=== PATIENT | female | born 1995 | race African-American/Black ===

== ENCOUNTER 2017-12-26 22:58 | Emergency (ER) | payer BC ==
[2017-12-27 01:03] LABS: ADD MAN DIFF? NO
[2017-12-27] MEDS: SOD CHLORIDE 0.9% 1,000 ML IV (01:03)
[2017-12-27] MEDS: METOCLOPRAMIDE 10 MG INJ IV (01:04)
[2017-12-27 01:05] LABS: ABNORMAL IP MESSAGE 1; BASOPHILS % 0.4 % (0.0-2.0); EOSINOPHILS # 0.1 10^3/ul (0.0-0.5); HEMATOCRIT 36.1 % (37.0-47.0); HEMOGLOBIN 11.1 g/dl (12.0-16.0); LYMPHOCYTES # 2.8 10^3/ul (0.8-2.9); MEAN CORPUSCULAR HEMOGLOBIN 24.3 pg (29.0-33.0); MEAN CORPUSCULAR HGB CONC 30.7 g/dl (32.0-37.0); MEAN CORPUSCULAR VOLUME 79.2 fl (82.0-101.0); MONOCYTE # 0.5 10^3/ul (0.3-0.9); MONOCYTES % 7.5 % (0.0-11.0); NEUTROPHIL # 3.3 10^3/ul (1.6-7.5); PLATELET COUNT 198 10^3/UL (140-415); RED BLOOD COUNT 4.56 10^6/ul (4.20-5.40); RED CELL DISTRIBUTION WIDTH 14.6 % (11.5-14.5)
[2017-12-27 01:05] LABS: WHITE BLOOD COUNT 6.8 10^3/ul (4.8-10.8)
[2017-12-27] MEDS: DIPHENHYDRAMINE 50 MG INJ IV (01:05)
[2017-12-27] MEDS: KETOROLAC 30 MG INJ IV (01:05)
[2017-12-27 01:07] LABS: POSITIVE DIFF @See below
[2017-12-27 01:22] LABS: ANION GAP 13 (8-16); BLOOD UREA NITROGEN 11 mg/dl (7-20); CALCIUM 9.3 mg/dl (8.4-10.2); CARBON DIOXIDE 23 mmol/L (21-31); CHLORIDE 109 mmol/L (97-110); CREATININE 0.85 mg/dl (0.44-1.00); GLUCOSE 81 mg/dl (70-220); POTASSIUM 4.2 mmol/L (3.5-5.1); SODIUM 141 mmol/L (135-144)
== END 2017-12-27 02:22 | disposition home or self-care (01) ==
LOC: FTE 22:58
DX: R51 Headache (principal)
CPT/HCPCS: 36415; 80048; 81025; 85025; 96374; 96375; 99284-25